=== PATIENT | female | born 1990 | race Caucasian/White ===

== ENCOUNTER 2017-11-09 13:09 | Emergency (ER) | payer SELFPAY | END 2017-11-09 15:16 | disposition left against medical advice (07) | LOC: E/R 13:09 → FTE 15:16 | DX: Z53.21 Procedure and treatment not carried out due to patient leaving prior to being seen by health care provider (principal) ==

== ENCOUNTER 2019-01-19 16:04 | Emergency (ER) | payer OTHER | END 2019-01-19 19:45 | disposition home or self-care (01) | LOC: FTE 19:45 | DX: J02.0 Streptococcal pharyngitis (principal); Z87.891 Personal history of nicotine dependence | CPT/HCPCS: 99283; Z7502 ==